=== PATIENT | male | born 1985 | race Caucasian/White ===

== ENCOUNTER 2019-10-10 13:58 | Emergency (ER) | payer BC, SELFPAY ==
[2019-10-10 14:05] VITALS: BP 138/89; PULSE 96; RESP 16; TEMP 37.2; O2SAT 97; BMI 29.8
--- NOTE | 2019-10-10 15:07 | W.ED.SKABFB ---
HPI - Skin/Abscess/Foreign Bdy General: Chief complaint: Skin/Abscess/Foreign Body Stated complaint: poss staff Time Seen by Provider: 10/10/19 14:27 Review of Systems General: Reports: 10 or more systems reviewed and unremarkable except in HPI and below PFSH ED PFSH: Social History Smoking and tobacco status: current every day smoker Physical Exam Const: COMMON NORMALS: no apparent distress, oriented x3, no limitations and alert GENERAL APPEARANCE: cooperative and comfortable ORIENTATION/CONSCIOUSNESS: Yes awake, Yes oriented to person, Yes oriented to place and Yes oriented to time HENMT: COMMON NORMALS: normocephalic, head/scalp atraumatic, external ears normal, EAC's normal, TM's normal bilaterally and external nose normal HEAD & SCALP: normal to inspection, normocephalic and atraumatic FACE & SINUS: normal facial exam, sinuses nontender and face symmetric NOSE: external nose normal, nares normal and no nasal discharge EXTERNAL EAR: Yes external ears normal EXTERNAL AUDITORY CANAL: EAC's normal TYMPANIC MEMBRANE: TM's normal bilaterally MOUTH: oral and palatal mucosa normal, lip normal and tongue normal THROAT: posterior oropharynx normal, tonsils normal and uvula midline Eye: COMMON NORMALS: PERRL, EOMs intact bilaterally and conjunctivae normal GENERAL EYE: normal appearance of both eyes and normal light reflex EYELID: eyelids normal CONJUNCTIVA: Yes conjunctivae normal PUPIL: Yes PERRL EOM: Yes EOM abnormal DIRECT OPHTHALMOSCOPY: Yes normal light reflex Neck/C-Spine: COMMON NORMALS: full ROM, no lymphadenopathy, supple, no meningeal signs, no JVD and thyroid normal GENERAL: Yes normal visual inspection THYROID: thyroid normal CERVICAL SPINE: Yes cervical ROM normal and Yes normal cervical lordosis Lymph: LYMPHATIC: no lymphadenopathy noted Chest: COMMONS NORMALS: inspection of chest normal and palpation of chest normal Resp: COMMON NORMALS: normal respiratory effort, no retractions and clear to auscultation bilaterally AUSCULTATION: clear to auscultation bilaterally Cardio: COMMON NORMALS: no JVD, regular rate, regular rhythm, S1 normal heart sound, S2 normal heart sound, no gallops, no clicks, no murmurs, no rub and peripheral pulses 2+ throughout RATE: regular rate RHYTHM: regular rhythm HEART SOUNDS: S1 normal and S2 normal PERIPHERAL PULSES: pulses 2+ throughout GI: COMMON NORMALS: normal to inspection, nondistended, normoactive bowel sounds, soft to palpation, non-tender and no masses PALPATION: Yes soft : COMMON NORMALS: Yes no CVA tenderness BLADDER/KIDNEY EXAM: Yes no CVA tenderness Back/Pelvis: COMMON NORMALS: no CVA tenderness, thoracic and lumbar spine normal to inspection, no thoracic nor lumbar tenderness and thoraco-lumbar ROM normal Extremity: COMMON NORMALS: normal to inspection, full ROM, normal capillary refill, no joint enlargement, no clubbing, cyanosis or edema, no calf tenderness and no pedal edema GENERAL: Yes normal exam except as noted Neuro: COMMON NORMALS: oriented x3, moves all extremities, no focal motor deficits, no sensory deficits noted and gait normal SENSORIUM/ORIENTATION: Yes alert, Yes oriented to person, Yes oriented to place and Yes oriented to time MENINGEAL SIGNS: Yes no meningeal signs Psych: COMMON NORMALS: mental status grossly normal, thought process normal, cooperative, affect normal, speech normal and activity/motor behavior normal SPEECH: Yes normal speech THOUGHT PROCESS: normal thought process Skin: COMMON NORMALS: no rashes or lesions noted, no wounds and skin turgor normal GENERAL SKIN EXAM: no rashes or lesions noted and turgor normal Course ED course: Pt has superficial, erythematous area to left chest, proximal to nipple. Vital Signs: Vital signs: Vital Signs Temperature 98.9 F 10/10/19 14:05 Pulse Rate 96 10/10/19 14:05 Respiratory Rate 16 10/10/19 14:05 Blood Pressure 138/89 10/10/19 14:05 Pulse Oximetry 97 10/10/19 14:05 Discharge Plan Discharge Patient Disposition: Home, Self-Care Clinical Impression: Abscess of skin or subcutaneous tissue Condition: Stable Prescriptions: New Bactrim DS 800-160 mg tablet 1 tab PO BID Qty: 14 RF: 0 Discharge Diet: Usual diet Discharge Activity: Resume usual activity Activity Restrictions/Additional Instructions: Please follow up if not improving within 2 days of antibiotic treatment. Warm compresses to area will help facilitate drainage. Do not poke or squeeze area. Coding Level of Care Code ED Network Diagnostic Support Specialist for Albina Fwd Exam Comprehensive
[2019-10-10 16:28] VITALS: BP 131/82; PULSE 91; RESP 16; O2SAT 97
== END 2019-10-10 16:28 | disposition home or self-care (01) ==
PROVIDERS: Emergency Provider Nurse Practitioner Family
DX: L02.213 Cutaneous abscess of chest wall (principal); F17.200 Nicotine dependence, unspecified, uncomplicated
CPT/HCPCS: 99281

== ENCOUNTER 2021-04-21 13:38 | Emergency (ER) | payer BC, SELFPAY ==
--- NOTE | 2021-04-21 13:54 | XRR_ITS ---
PROCEDURE INFORMATION: Exam: XR Right Hand Exam date and time: 04/21/2021 1:54 PM Age: 35 years old Clinical indication: Injury or trauma; Other: Cut thumb; Laceration; Finger; Right; Additional info: Hand pain TECHNIQUE: Imaging protocol: XR Right hand. Views: 3 or more views. COMPARISON: No relevant prior studies available. FINDINGS: Bones/joints: Normal. Soft tissues: Normal. XR/XR hand RT min 3V* [id number] IMPRESSION: No acute findings.
[2021-04-21 14:23] VITALS: BP 131/82; PULSE 80; RESP 18; TEMP 36.7; O2SAT 97; BMI 32.3
[2021-04-21 14:55] VITALS: BP 131/82; PULSE 82; RESP 16; O2SAT 97
--- NOTE | 2021-04-21 14:55 | ED_ITS ---
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 Onset (ago): hour(s) Extremity Location: Right: hand Place: home Patient tetanus UTD: Yes Context: accidental Associated symptoms: Reports no associated symptoms; Denies chills or fever(s) Review of Systems Const: Denies: fever(s) or chills Musc: Denies: extremity pain Skin/Breast: Reports: other (Laceration right thumb) Psych: Denies: anxiety PFSH ED PFSH: Social History Smoking and tobacco status: current every day smoker Physical Exam Const: COMMON NORMALS: no acute distress GENERAL APPEARANCE: cooperative Extremity: RIGHT UPPER EXTREMITY: Yes hand & digits (Right thumb with a 1/2 inch laceration superficial full movement of thumb d) Psych: COMMON NORMALS: mental status grossly normal Skin: OTHER: Laceration right thumb Procedures Laceration Laceration 1: Site: hand Side (If applicable): right Size (cm): 4 Description: linear and clean Depth: simple, single layer Local Anesthetic: lidocaine 1% Pre-repair: wound explored, irrigated extensively and deep structures intact Skin layer closed with: other (Ethilon) Size (cm): 4-0 Number of sutures: 3 Technique: simple, interrupted Course Vital Signs: Vital signs: Vital Signs Temperature 98.1 F 04/21/21 14:23 Pulse Rate 80 04/21/21 14:23 Respiratory Rate 18 04/21/21 14:23 Blood Pressure 131/82 04/21/21 14:23 Pulse Oximetry 97 04/21/21 14:23 Discharge Plan Discharge Patient Disposition: Home Clinical Impression: Laceration Condition: Stable Discharge Orders: Discharge ED (Routine); Ordered 04/21/21 Ordered By: Abel Urban Discharge Diet: Usual diet Discharge Activity: Resume usual activity Patient Instructions: Suture Care (ED), Laceration (ED) Activity Restrictions/Additional Instructions: Have sutures removed in 7 days. Watch for signs and symptoms of infection. Keep area clean. Leave dressing on for at least next 2 days. Coding Level of Care Code ED Professor Of Business for Albina Coronel
== END 2021-04-21 15:11 | disposition home or self-care (01) ==
PROVIDERS: Emergency Provider Nurse Practitioner Family
DX: S61.011A Laceration without foreign body of right thumb without damage to nail, initial encounter (principal); W27.8XXA Contact with other nonpowered hand tool, initial encounter; F17.210 Nicotine dependence, cigarettes, uncomplicated
CPT/HCPCS: 12002; 73130; 99282

== ENCOUNTER 2022-07-29 19:15 | Emergency (ER) | payer OTHER, SELFPAY ==
[2022-07-29 19:26] VITALS: BP 154/87; PULSE 135; RESP 20; TEMP 37.6; O2SAT 96; BMI 32.3
--- NOTE | 2022-07-29 19:41 | CTR_ITS ---
PROCEDURE INFORMATION: Exam: CTA Chest With Contrast Exam date and time: 07/29/2022 8:36 PM Age: 36 years old Clinical indication: Abnormal findings; Abnormal diagnostic tests; Elevated d-dimer; Cough and fever; Patient HX: Persistent dry cough with fever. Diagnosed with covid two weeks ago. ; Additional info: Concern for pe TECHNIQUE: Imaging protocol: Computed tomographic angiography of the chest with contrast. 3D rendering (Not supervised by radiologist): MIP and/or 3D reconstructed images were created by the technologist. Radiation optimization: All CT scans at this facility use at least one of these dose optimization techniques: automated exposure control; mA and/or kV adjustment per patient size (includes targeted exams where dose is matched to clinical indication); or iterative reconstruction. Contrast material: OMNI 350; Contrast volume: 100 ml; Contrast route: INTRAVENOUS (IV); COMPARISON: CR (CHEST, ) 07/29/2022 7:50 PM RADIATION DOSE METRICS: Total DLP (mGy-cm): 383.09 FINDINGS: Pulmonary arteries: Normal. No pulmonary emboli. Aorta: Unremarkable. No aortic aneurysm. No aortic dissection. Lungs: Multiple small nodular opacities as well as more confluent consolidative opacities within both perihilar regions. Pleural spaces: Unremarkable. No pneumothorax. No pleural effusion. Heart: Unremarkable. No cardiomegaly. No pericardial effusion. Lymph nodes: Unremarkable. No enlarged lymph nodes. Bones/joints: Unremarkable. No acute fracture. Soft tissues: Unremarkable. CT/CT angio chest PE protcl [id number] IMPRESSION: Multiple small nodular opacities as well as more confluent consolidative opacities within both perihilar regions suggestive of multifocal pneumonia. Negative for pulmonary embolism.
--- NOTE | 2022-07-29 19:41 | XRR_ITS ---
PROCEDURE INFORMATION: Exam: XR Chest Exam date and time: 07/29/2022 7:50 PM Age: 36 years old Clinical indication: Cough and shortness of breath; Smoker's cough TECHNIQUE: Imaging protocol: Radiologic exam of the chest. Views: 1 view. COMPARISON: No relevant prior studies available. FINDINGS: Lungs: There appear to be small nodular opacities in the perihilar regions as well as subtle ill-defined opacity in the left perihilar region. Pleural spaces: Unremarkable. No pleural effusion. No pneumothorax. Heart/Mediastinum: Unremarkable. No cardiomegaly. Bones/joints: Unremarkable. XR/XR chest 1V portable [id number] IMPRESSION: There appear to be small nodular opacities in the perihilar regions as well as a subtle left perihilar opacity. Findings may reflect a small airway infectious or inflammatory process.
--- NOTE | 2022-07-29 19:42 | W.ED.SOB ---
HPI - SOB/Dyspnea General: Chief Complaint: Shortness of Breath/Dyspnea Stated Complaint: sob, chest tightness Time Seen by Provider: 07/29/22 19:34 History of Present Illness: HPI Narrative: Patient comes in with increasing shortness of breath. States he was diagnosed with COVID a week ago, and has been sick for about 2 weeks. Comes in today with worsening shortness of breath and cough for the past 3 days. States that the cough is productive of white foamy sputum. Denies any medical history. Associated symptoms: Reports chest pain; Deny abdominal pain, fever(s), nausea, palpitations, polyuria or vomiting Review of Systems Const: Denies: fever(s) or body aches Eyes: Denies: change in vision or blurry vision ENMT: Denies: throat pain or odynophagia Card: Reports: chest pain; Denies: palpitations Resp: Reports: dyspnea and productive cough GI: Denies: abdominal pain, nausea or vomiting : Denies: flank pain or dysuria Musc: Denies: neck pain or back pain Skin/Breast: Denies: rash or pruritus Neuro: Denies: headache(s) or numbness in extremities Psych: Denies: anxiety or change in appetite Endo: Denies: polyuria or excessive sweating PFSH ED PFSH: Medical History (Updated 07/29/22 @ 22:05 by Santos Davis MD) COVID Otitis media of right ear Social History Smoking and tobacco status: current every day smoker Physical Exam Const: COMMON NORMALS: no acute distress, patient oriented x3, healthy appearing and alert HENMT: COMMON NORMALS: normocephalic and atraumatic HEAD & SCALP: normocephalic and atraumatic Eye: COMMON NORMALS: Equal, round and reactive pupils present and EOMs intact bilaterally PUPIL: Yes Equal, round and reactive pupils present Neck/C-Spine: COMMON NORMALS: full ROM and supple Resp: COMMON NORMALS: No retractions and No use of accessory muscles OTHER: Coarse breath sounds in all lung rodriguez with mild expiratory wheezes Cardio: COMMON NORMALS: regular rhythm RHYTHM: regular rhythm OTHER: Tachycardia GI: COMMON NORMALS: Normal to inspection, nondistended, normoactive bowel sounds present, Soft to palpation and non-tender PALPATION: Yes Soft to palpation Back/Pelvis: COMMON NORMALS: thoracic and lumbar spine normal to inspection and no thoracic nor lumbar tenderness Extremity: COMMON NORMALS: normal to inspection and full ROM Neuro: COMMON NORMALS: patient oriented x3 SENSORIUM/ORIENTATION: Yes alert Psych: COMMON NORMALS: mental status grossly normal and cooperative Skin: COMMON NORMALS: no rashes or lesions noted and no wounds GENERAL SKIN EXAM: no rashes or lesions noted Course Vital Signs: Vital signs: Vital Signs Temperature 99.0 F 07/29/22 20:50 Pulse Rate 115 H 07/29/22 20:50 Respiratory Rate 18 07/29/22 20:50 Blood Pressure 159/91 07/29/22 20:50 Pulse Oximetry 94 07/29/22 20:50 Oxygen Delivery Me thod 07/29/22 20:50 MDM - SOB/Dyspnea Medical Decision Making Patient comes in with increasing shortness of breath. States he was diagnosed with COVID a week ago, and has been sick for about 2 weeks. Comes in today with worsening shortness of breath and cough for the past 3 days. States that the cough is productive of white foamy sputum. Denies any medical history. On physical exam he has coarse breath sounds in all lung rodriguez. Will check labs, x-ray, CT, give DuoNeb treatment, steroids, and reassess. On reassessment I talked to the patient about the test results. I am concerned that he has a superimposed bacterial infection on top of the COVID infection as he tested negative for COVID today and has an elevated white count with multifocal pneumonia on the x-ray. He is requiring a liter of supplemental oxygen. We will start him on antibiotics, get him set up for home oxygen as he does not wish to stay in the hospital, and discharged with precautions to return for worsening or changing symptoms. We will also encourage him to follow with his primary care physician Lab Data 07/29/22 20:05 07/29/22 20:05 Labs/Radiology: Radiology Impressions Chest CTA 07/29/22 19:41 IMPRESSION: Multiple small nodular opacities as well as more confluent consolidative opacities within both perihilar regions suggestive of multifocal pneumonia. Negative for pulmonary embolism. Chest X-Ray 07/29/22 19:41 IMPRESSION: There appear to be small nodular opacities in the perihilar regions as well as a subtle left perihilar opacity. Findings may reflect a small airway infectious or inflammatory process. Laboratory Results WBC 18.7 10^3/uL (4.0-10.0) H 07/29/22 20:05 RBC 4.70 10^6/uL (4.1-5.3) 07/29/22 20:05 Hgb 13.7 g/dL (11.7-16.6) 07/29/22 20:05 Hct 41.4 % (42.0-52.0) L 07/29/22 20:05 MCV 88.1 fl (80-94) 07/29/22 20:05 MCH 29.1 pg (28.0-34.0) 07/29/22 20:05 MCHC 33.1 g/dL (30.0-36.0) 07/29/22 20:05 RDW 13.0 % (12.1-15.1) 07/29/22 20:05 Plt Count 432 10^3/cmm (130-400) H 07/29/22 20:05 MPV 9.8 fL (7.4-10.4) 07/29/22 20:05 Neut % (Auto) 74.0 % 07/29/22 20:05 Lymph % (Auto) 14.2 % 07/29/22 20:05 [place] % (Auto) 8.3 % 07/29/22 20:05 Eos % (Auto) 2.1 % 07/29/22 20:05 Baso % (Auto) 0.4 % 07/29/22 20:05 Neut # (Auto) 13.83 10^3/uL (1.8-7.7) H 07/29/22 20:05 Lymph # (Auto) 2.7 10^3/uL (0.8-4.8) 07/29/22 20:05 [place] # (Auto) 1.6 10^3/uL (0.2-0.9) H 07/29/22 20:05 Eos # (Auto) 0.4 10^3/uL (0.0-0.8) 07/29/22 20:05 Baso # (Auto) 0.1 10^3/uL (0.0-0.1) 07/29/22 20:05 Nucleated RBC % (auto) 0 % 07/29/22 20:05 Nucleated RBCs # 0.0 /100WBC 07/29/22 20:05 Sodium 141 mmol/L (136-145) 07/29/22 20:05 Potassium 4.3 mmol/L (3.5-5.1) 07/29/22 20:05 Chloride 105 mmol/L (98-107) 07/29/22 20:05 Carbon Dioxide 24 mmol/L (22-29) 07/29/22 20:05 Anion Gap 16.3 (5-19) 07/29/22 20:05 BUN 16 mg/dL (6-20) 07/29/22 20:05 Creatinine 0.9 mg/dL (0.7-1.2) 07/29/22 20:05 GFR Calculation 96.6 mL/min (90-130) 07/29/22 20:05 Glucose 88 mg/dL (65-115) 07/29/22 20:05 Calculated Osmolality 293 mOsm/kg (285-295) 07/29/22 20:05 Calcium 9.9 mg/dL (8.5-10.5) 07/29/22 20:05 Total Bilirubin 0.3 mg/dL (0.15-1.2) 07/29/22 20:05 AST 57 U/L (0-40) H 07/29/22 20:05 ALT 98 U/L (0-41) H 07/29/22 20:05 Alkaline Phosphatase 166 U/L (40-130) H 07/29/22 20:05 NT-Pro-B Natriuret Pep 183 pg/mL (0-125) H 07/29/22 20:05 Total Protein 7.8 g/dL (6.6-8.7) 07/29/22 20:05 Albumin 3.8 g/dL (3.5-5.2) 07/29/22 20:05 Globulin 4.0 g/dL (1.3-4.6) 07/29/22 20:05 Discharge Plan Discharge Patient Disposition: Home Clinical Impression: Hypoxia, Pneumonia Condition: Stable Prescriptions: New levofloxacin 750 mg tablet 750 mg PO DAILY 7 Days Qty: 7 0RF prednisone 20 mg tablet 60 mg PO DAILY 4 Days Qty: 4 0RF No Action sulfamethoxazole-trimethoprim 800-160 mg tablet 1 tab PO BID Qty: 14 0RF fluticasone propionate 50 mcg/actuation spray,suspension 2 spray intranasal DAILY PRN (Reason: nasal congestion) Qty: 16 3RF Rx Instructions: administer into each nostril Discharge Orders: Discharge ED (Routine); Ordered 07/29/22 Ordered By: Santos Davis Referrals: Rashida Johnson, SOFTWARE QUALITY TEST ENGINEER [Primary Care Provider] - Patient Instructions: Pneumonia - Bacterial Coding Level of Care Code ED Hotel Controller for Chg Fwd Exam Comprehensive
--- NOTE | 2022-07-29 19:54 | ECG_ITS ---
[facility] Test Date: 2022-07-29 Pat Name: Jadon Lim Department: Room: Gender: Male Cover Creaser: : 1985 Requested By: Santos Davis Order Number: [id number] Carlos MD: Hadley Whitney M.D. Measurements Intervals [place] Rate: 123 P: 67 RI: 160 QRS: 70 QRSD: 82 T: 48 QT: 291 QTc: 416 Interpretive Statements SINUS TACHYCARDIA No previous ECG available for comparison Electronically Signed On 07-29-2022 20:21:37 MECHANICAL MAINTENANCE WORKER by Hadley Whitnye M.D. [id number]
[2022-07-29 20:12] LABS: Basophils # 0.1 10^3/uL (0.0-0.1); Basophils % 0.4 %; Eosinophils # 0.4 10^3/uL (0.0-0.8); Eosinophils % 2.1 %; Hematocrit 41.4 % (42.0-52.0); Hemoglobin 13.7 g/dL (11.7-16.6); Lymphocytes # 2.7 10^3/uL (0.8-4.8); Lymphocytes % 14.2 %; Mean Corpuscular HGB Conc 33.1 g/dL (30.0-36.0); Mean Corpuscular Hemoglobin 29.1 pg (28.0-34.0); Mean Corpuscular Volume 88.1 fl (80-94); Mean Platelet Volume 9.8 fL (7.4-10.4); Monocytes # 1.6 10^3/uL (0.2-0.9); Monocytes % 8.3 %; Neutrophils # 13.83 10^3/uL (1.8-7.7); Nucleated Red Blood Cells % 0 %; Platelet Count 432 10^3/cmm (130-400); White Blood Count 18.7 10^3/uL (4.0-10.0)
[2022-07-29] MEDS: ipratropium-albuterol 3 mL Neb INHALATION (20:15)
[2022-07-29] MEDS: ketorolac 30 mg/mL INJ 15 MG IVP (20:17)
[2022-07-29 20:18] VITALS: PULSE 121; RESP 20; O2SAT 99
[2022-07-29] MEDS: iohexol 350 mg/mL 500 mL Btl (per mL) IV (20:40)
[2022-07-29 20:46] LABS: Alanine Aminotransferase 98 U/L (0-41); Albumin Level 3.8 g/dL (3.5-5.2); Alkaline Phosphatase 166 U/L (40-130); Anion Gap 16.3 (5-19); Aspartate Amino Transferase 57 U/L (0-40); Blood Urea Nitrogen 16 mg/dL (6-20); Calcium 9.9 mg/dL (8.5-10.5); Carbon Dioxide 24 mmol/L (22-29); Chloride 105 mmol/L (98-107); Glomerular Filtration Rate 96.6 mL/min (90-130); Glucose 88 mg/dL (65-115); NT Pro B Type Natriuretic Pept 183 pg/mL (0-125); Osmolality Calculated 293 mOsm/kg (285-295); Potassium 4.3 mmol/L (3.5-5.1); Sodium 141 mmol/L (136-145); Total Bilirubin 0.3 mg/dL (0.15-1.2); Total Protein 7.8 g/dL (6.6-8.7)
[2022-07-29 20:50] VITALS: BP 159/91; PULSE 115; RESP 18; TEMP 37.2; O2SAT 94
[2022-07-29] MEDS: levoFLOXacin 750 mg Tablet PO (22:06)
[2022-07-29 22:28] VITALS: O2SAT 92; O2SAT 96
[2022-07-29 22:36] VITALS: BP 129/71; PULSE 102; RESP 18
== END 2022-07-29 23:01 | disposition home or self-care (01) ==
PROVIDERS: Emergency Provider Emergency Medicine; PCP Nurse Practitioner Family
DX: J18.9 Pneumonia, unspecified organism (principal); R09.02 Hypoxemia
CPT/HCPCS: 71045; 71275; 80053; 83880; 85025; 93005; 94640; 96374; 96375; 99285; J1885; J2930; Q9967

== ENCOUNTER 2022-09-27 08:41 | Emergency (ER) | payer OTHER, SELFPAY ==
[2022-09-27 08:48] VITALS: BP 135/96; PULSE 113; RESP 16; TEMP 36.8; O2SAT 96; BMI 31.1
[2022-09-27 09:05] VITALS: RESP 14
[2022-09-27 09:13] LABS: Basophils # 0.1 10^3/uL (0.0-0.1); Basophils % 0.5 %; Eosinophils # 0.3 10^3/uL (0.0-0.8); Eosinophils % 3.6 %; Hematocrit 42.5 % (42.0-52.0); Hemoglobin 14.7 g/dL (11.7-16.6); Lymphocytes # 3.3 10^3/uL (0.8-4.8); Lymphocytes % 34.2 %; Mean Corpuscular HGB Conc 34.6 g/dL (30.0-36.0); Mean Corpuscular Hemoglobin 29.3 pg (28.0-34.0); Mean Corpuscular Volume 84.7 fl (80-94); Mean Platelet Volume 11.5 fL (7.4-10.4); Monocytes # 1.3 10^3/uL (0.2-0.9); Monocytes % 13.5 %; Neutrophils # 4.37 10^3/uL (1.8-7.7); Neutrophils % 45.9 %; Nucleated Red Blood Cells % 0 %; Platelet Count 192 10^3/cmm (130-400); Red Blood Count 5.02 10^6/uL (4.1-5.3); Red Cell Distribution Width 13.9 % (12.1-15.1); White Blood Count 9.5 10^3/uL (4.0-10.0)
[2022-09-27 09:16] LABS: INR 0.88 (0.8-1.2)
[2022-09-27 09:17] LABS: Partial Thromboplastin Time 26.9 SECONDS (23.9-36.7)
[2022-09-27] MEDS: ondansetron 2 mg/ML SDV 2 mL 4 MG IVP (09:18)
[2022-09-27] MEDS: sodium chloride 0.9% 1,000 ML 999 ML IV (09:18)
--- NOTE | 2022-09-27 09:20 | W.ED.RECABL ---
HPI - Recheck/Abnormal Lab/Rx General: Chief Complaint: Recheck/Abnormal Lab/Rx Stated Complaint: abd pain/n/v Time Seen by Provider: 09/27/22 08:54 Source: patient Mode of arrival: ambulatory History of Present Illness: 37-year-old male presents emergency room with device his primary caregiver this is liver enzymes were elevated. Reviewing his chart he had a Liverel elevated liver enzymes in the past. He is not particularly jaundiced in appearance he denies any nausea or vomiting at this time he says he frequently has had it intermittently over the last week. Denies hematochezia melena hematemesis. No cough or shortness of breath no diarrhea no previous abdominal surgeries does not drinker. MD complaint: abnormal lab Review of Systems Const: Denies: fever(s), chills, body aches, change in appetite, fatigue or malaise ENMT: Denies: throat pain, ear or mastoid pain, nasal discharge or nasal congestion Card: Denies: chest pain, edema, dyspnea on exertion or orthopnea Resp: Denies: dyspnea, productive cough or non-productive cough GI: Denies: abdominal pain, nausea, vomiting, hematemesis, coffee ground emesis, diarrhea, constipation, bloating, hematochezia or melena : Denies: flank pain, dysuria, urinary frequency or urinary urgency Skin/Breast: Denies: rash or pruritus PFSH ED PFSH: Medical History COVID Otitis media Social History Smoking and tobacco status: current every day smoker Physical Exam Const: COMMON NORMALS: no acute distress GENERAL APPEARANCE: cooperative and comfortable ORIENTATION/CONSCIOUSNESS: Yes awake, Yes oriented to person, Yes oriented to place and Yes oriented to time HENMT: COMMON NORMALS: normocephalic, atraumatic and hearing grossly normal bilaterally HEAD & SCALP: normocephalic and atraumatic Resp: COMMON NORMALS: normal respiratory effort, No retractions, No use of accessory muscles and clear to auscultation bilaterally AUSCULTATION: clear to auscultation bilaterally Cardio: COMMON NORMALS: regular rate, regular rhythm and No murmurs present (Cardio) RATE: regular rate RHYTHM: regular rhythm GI: COMMON NORMALS: Soft to palpation and No hepatosplenomegaly present AUSCULTATION: Yes normoactive bowel sounds PALPATION: Yes Soft to palpation, No Tenderness to palpation present (GI), No Guarding due to palpation present (GI) and Yes No hepatosplenomegaly present Extremity: COMMON NORMALS: normal to inspection, capillary refill normal, no clubbing, cyanosis or edema, no calf tenderness and no pedal edema Neuro: SENSORIUM/ORIENTATION: Yes oriented to person, Yes oriented to place and Yes oriented to time Skin: COMMON NORMALS: no rashes or lesions noted GENERAL SKIN EXAM: no rashes or lesions noted Course Vital Signs: Vital signs: Vital Signs Temperature 98.2 F 09/27/22 08:48 Pulse Rate 113 H 09/27/22 08:48 Respiratory Rate 14 09/27/22 09:05 Blood Pressure 135/96 09/27/22 08:48 Pulse Oximetry 96 09/27/22 08:48 Oxygen Delivery Me thod 09/27/22 08:48 MDM - Recheck/Abnormal Lab/Rx Medical Decision Making TCarrie bili is decreased from measurement yesterday in the office although his transaminases are slightly increased. His lipase is increased as well he is asymptomatic for the most part he has no evidence of jaundice and no abdominal pain. Patient be discharged home he should follow-up next week for repeat laboratory testing if his transaminases persist elevated may need to see GI. Suspect that his nonspecific viral hepatitis acute hepatitis panel in the ER was negative. Discussed with the patient strongly encouraged him not to use any Tylenol. Medical Records I reviewed the patient's medical records. Lab Data I reviewed the patient's lab results. 09/27/22 08:58 09/27/22 08:58 Radiology Impressions Gallbladder Ultrasound 09/27/22 10:12 IMPRESSION: 1. Normal gallbladder. 2. No bile duct dilatation. 3. Nonobstructing 6 mm stone lower pole RIGHT kidney. Laboratory Results WBC 9.5 10^3/uL (4.0-10.0) 09/27/22 08:58 RBC 5.02 10^6/uL (4.1-5.3) 09/27/22 08:58 Hgb 14.7 g/dL (11.7-16.6) 09/27/22 08:58 Hct 42.5 % (42.0-52.0) 09/27/22 08:58 MCV 84.7 fl (80-94) 09/27/22 08:58 MCH 29.3 pg (28.0-34.0) 09/27/22 08:58 MCHC 34.6 g/dL (30.0-36.0) 09/27/22 08:58 RDW 13.9 % (12.1-15.1) 09/27/22 08:58 Plt Count 192 10^3/cmm (130-400) 09/27/22 08:58 MPV 11.5 fL (7.4-10.4) H 09/27/22 08:58 Neut % (Auto) 45.9 % 09/27/22 08:58 Lymph % (Auto) 34.2 % 09/27/22 08:58 [place] % (Auto) 13.5 % 09/27/22 08:58 Eos % (Auto) 3.6 % 09/27/22 08:58 Baso % (Auto) 0.5 % 09/27/22 08:58 Neut # (Auto) 4.37 10^3/uL (1.8-7.7) 09/27/22 08:58 Lymph # (Auto) 3.3 10^3/uL (0.8-4.8) 09/27/22 08:58 [place] # (Auto) 1.3 10^3/uL (0.2-0.9) H 09/27/22 08:58 Eos # (Auto) 0.3 10^3/uL (0.0-0.8) 09/27/22 08:58 Baso # (Auto) 0.1 10^3/uL (0.0-0.1) 09/27/22 08:58 Nucleated RBC % (auto) 0 % 09/27/22 08:58 Nucleated RBCs # 0.0 /100WBC 09/27/22 08:58 PT 12.20 SECONDS (12.1-14.9) 09/27/22 08:58 INR 0.88 (0.8-1.2) 09/27/22 08:58 APTT 26.9 SECONDS (23.9-36.7) 09/27/22 08:58 Sodium 139 mmol/L (136-145) 09/27/22 08:58 Potassium 3.1 mmol/L (3.5-5.1) L 09/27/22 08:58 Chloride 98 mmol/L (98-107) 09/27/22 08:58 Carbon Dioxide 29 mmol/L (22-29) 09/27/22 08:58 Anion Gap 15.1 (5-19) 09/27/22 08:58 BUN 15 mg/dL (6-20) 09/27/22 08:58 Creatinine 1.2 mg/dL (0.7-1.2) 09/27/22 08:58 GFR Calculation 68.9 mL/min (90-130) L 09/27/22 08:58 Glucose 110 mg/dL (65-115) 09/27/22 08:58 Calculated Osmolality 289 mOsm/kg (285-295) 09/27/22 08:58 Calcium 8.9 mg/dL (8.5-10.5) 09/27/22 08:58 Total Bilirubin 2.0 mg/dL (0.15-1.2) H 09/27/22 08:58 AST 224 U/L (0-40) H 09/27/22 08:58 ALT 353 U/L (0-41) H 09/27/22 08:58 Alkaline Phosphatase 744 U/L (40-130) H 09/27/22 08:58 Total Protein 6.5 g/dL (6.6-8.7) L 09/27/22 08:58 Albumin 4.0 g/dL (3.5-5.2) 09/27/22 08:58 Globulin 2.5 g/dL (1.3-4.6) 09/27/22 08:58 Lipase 68 U/L (13-60) H 09/27/22 08:58 Urine Color Dark yellow (Yellow) 09/27/22 09:45 Urine Appearance Clear (CLEAR) 09/27/22 09:45 Urine pH 6 (5-7) 09/27/22 09:45 Ur Specific [place] 1.015 (1.005-1.030) 09/27/22 09:45 Urine Protein Neg (Negative) 09/27/22 09:45 Urine Glucose (UA) Norm (Normal) 09/27/22 09:45 Urine Ketones Negative (Negative) 09/27/22 09:45 Urine Blood Neg (Negative) 09/27/22 09:45 Urine Nitrate Negative (Negative) 09/27/22 09:45 Urine Bilirubin 1+ (Negative) H 09/27/22 09:45 Urine Urobilinogen 1 mg/dL (Negative) H 09/27/22 09:45 Ur Leukocyte Esterase Negative (Negative) 09/27/22 09:45 Acetaminophen 12.7 ug/mL (10-30) 09/27/22 08:58 Hepatitis A IgM Ab Non-reactive (Nonreactive) 09/27/22 08:58 Hep Bs Antigen Non-reactive (Nonreactive) 09/27/22 08:58 Hep B Core IgM Ab Non-reactive (Nonreactive) 09/27/22 08:58 Hepatitis C Antibody Non-reactive (Nonreactive) 09/27/22 08:58 Discharge Plan Discharge Patient Disposition: Home Clinical Impression: Elevated LFTs, Hyperbilirubinemia Condition: Stable Prescriptions: New promethazine 25 mg tablet 25 mg PO Q6H PRN (Reason: nausea and vomiting) Qty: 20 0RF Discontinued acetaminophen [Tylenol] 325 mg Capsule 650 mg PO QID PRN (Reason: Pain) No Action fluticasone propionate 50 mcg/actuation spray,suspension 2 spray intranasal DAILY PRN (Reason: nasal congestion) Qty: 16 3RF Rx Instructions: administer into each nostril ibuprofen 200 mg Capsule 800 mg PO Q6H PRN (Reason: Pain) ondansetron 8 mg tablet,disintegrating 8 mg PO Q8H Discharge Orders: Discharge ED (Routine); Ordered 09/27/22 Ordered By: Ayaan Valencia Referrals: Rashida Johnson, F[employer] ROOM WORKER [Primary Care Provider] - Discharge Diet: Usual diet Discharge Activity: Resume usual activity Patient Instructions: Opioid Safety, Pain Management Activity Restrictions/Additional Instructions: You are seen today for elevated liver enzymes. Ultrasound was negative there is no sign of any biliary duct obstruction. Suspect this is from a viral infection to the liver your hepatitis panel was negative you should follow-up with your primary care doctor within the next 1 to 2 weeks to recheck liver functions. Coding Level of Care Code ED Inventory Specialist Manager for Albina Coronel
[2022-09-27 09:21] LABS: Alanine Aminotransferase 353 U/L (0-41); Alkaline Phosphatase 744 U/L (40-130); Anion Gap 15.1 (5-19); Aspartate Amino Transferase 224 U/L (0-40); Blood Urea Nitrogen 15 mg/dL (6-20); Calcium 8.9 mg/dL (8.5-10.5); Carbon Dioxide 29 mmol/L (22-29); Chloride 98 mmol/L (98-107); Globulin 2.5 g/dL (1.3-4.6); Glomerular Filtration Rate 68.9 mL/min (90-130); Glucose 110 mg/dL (65-115); Osmolality Calculated 289 mOsm/kg (285-295); Potassium 3.1 mmol/L (3.5-5.1); Sodium 139 mmol/L (136-145); Total Protein 6.5 g/dL (6.6-8.7)
[2022-09-27 09:37] LABS: Acetaminophen 12.7 ug/mL (10-30)
[2022-09-27 09:48] LABS: Add Urine Microscopic? NO; Charge for UA Resulting for Rev
[2022-09-27 10:00] LABS: Hepatitis A Antibody IgM Non-Reactive (Nonreactive); Hepatitis B Core IgM Non-Reactive (Nonreactive); Hepatitis B Surface Antigen Non-Reactive (Nonreactive); Hepatitis C Virus Antibody Non-Reactive (Nonreactive); Lipase 68 U/L (13-60)
[2022-09-27 10:11] LABS: Urine Appearance Clear (CLEAR); Urine Color Dark Yellow (Yellow)
[2022-09-27 10:12] LABS: Bilirubin Urine 1+ (Negative); Blood Urine Neg (Negative); Glucose Urine UA Norm (Normal); Ketones Urine Negative (Negative); Leukocyte Esterase Urine Negative (Negative); Nitrate Urine Negative (Negative); Protein Urine Neg (Negative); Specific Gravity, Urine 1.015 (1.005-1.030); Urobilinogen Urine 1 mg/dL (Negative); pH Urine 6 (5-7)
--- NOTE | 2022-09-27 10:12 | US_ITS ---
WS: [id number] RIGHT UPPER QUADRANT ULTRASOUND HISTORY: elevated LFTs and lipase COMPARISON: None available. Liver: 17.5 cm in length. Normal size liver. No bile duct dilatation or mass. Portal Vein: Normal hepatopetal flow with monophasic waveform. Gallbladder: Normally distended gallbladder with no stones or wall thickening. CBD: 0.4 cm Pancreas: Normal size and echogenicity. Right kidney: 12.2 cm in length. Normal size and echogenicity. No central calcification measuring 6 m m in the lower pole. No hydronephrosis or mass. Aorta and IVC: Unremarkable abdominal aorta and IVC. No ascites. US/US gall bladder [id number] IMPRESSION: 1. Normal gallbladder. 2. No bile duct dilatation. 3. Nonobstructing 6 mm stone lower pole RIGHT kidney.
== END 2022-09-27 12:20 | disposition home or self-care (01) ==
PROVIDERS: Emergency Provider Family Medicine; PCP Nurse Practitioner Family
DX: R79.89 Other specified abnormal findings of blood chemistry (principal); E80.6 Other disorders of bilirubin metabolism; F17.210 Nicotine dependence, cigarettes, uncomplicated
CPT/HCPCS: 76705; 80053; 80074; 80307; 81003; 83690; 85025; 85610; 85730; 96361; 96374; 99285; J2405; J7030